=== PATIENT | male | born 1995 | race Two or more races ===

== ENCOUNTER 2022-09-30 21:39 | Emergency (ER) | payer OTHER ==
[~2022-09-30] VITALS: Ht 182.9 cm; Wt 72.7 kg
[2022-09-30 21:40] VITALS: BP 130/72
[2022-09-30] MEDS ORDERED: ACETAMINOPHEN 500 MG TABLET PO ONE (22:30)
== END 2022-09-30 23:30 | disposition home or self-care (01) ==
LOC: EMS 21:41
DX: S62.395A Other fracture of fourth metacarpal bone, left hand, initial encounter for closed fracture (principal); F12.90 Cannabis use, unspecified, uncomplicated; X58.XXXA Exposure to other specified factors, initial encounter; Y93.89 Activity, other specified; Y92.89 Other specified places as the place of occurrence of the external cause; Y99.8 Other external cause status
CPT/HCPCS: 99283